=== PATIENT | male | born 1935 | race Caucasian/White ===

== ENCOUNTER 2016-12-03 21:34 | Emergency (ER) | payer MEDICARE ==
[2016-12-03] MEDS ORDERED: GLUCAGON,HUMAN RECOMBINANT 1 MG/ML KIT ONE (22:37)
--- NOTE | 2016-12-03 23:24 | ER PHYSICIAN DOCUMENTATION ---
Physician Documentation [facility] Name:Justo Hopkins Age:80 yrs Sex:Male :1935 Arrival Date:12/03/2016 Time:21:34 Bed4 Private MD:Tu Loaiza ED, Scott Disposition: 12/03/16 22:52 Transfer ordered to [facility]. Diagnosis is Esophageal Stricture. - Reason for transfer: Specialty. - Accepting physician is Dr. Vargas, ER, to consult GI. - Condition is Good. - Problem is new. - Symptoms are unchanged. COBRA Form completed? Transfer - Mode of Transportation Private Vehicle HPI: 12/03 22:47 This 80 yrs old Male presents to ER via Walk In with complaints of Foreign sc Body In Throat. 22:47 eating steak and asparagus. Onset: The symptom(s)/episode began/occurred just prior to sc arrival. Severity of symptoms: At their worst the symptoms were mild. The patient has experienced similar episodes in the past, a few times. known GERD, sxs of food sticking for a few months. Historical: - Allergies: Atenolol; - Tetanus: < 10 years. - Ebola Screening: : Patient negative for fever greater than or equal to 101.5 degrees Fahrenheit, and additional compatible Ebola Virus Disease symptoms. Patient denies exposure to infectious person. Patient denies travel to an Ebola-affected area in the 21 days before illness onset. No symptoms or risks identified at this time. . - Immunization history: Flu Vaccine < 1 year. - Social history: Smoking status: Patient states was never smoker of tobacco. ROS: 22:48 Constitutional: Negative for fever, chills, and weight loss. sc Eyes: Negative for injury, pain, redness, and discharge. ENT: Negative for injury, pain, and discharge. Neck: Negative for injury, pain, and swelling. Cardiovascular: Negative for chest pain, palpitations, and edema. Respiratory: Negative for shortness of breath, cough, wheezing, and pleuritic chest pain. Back: Negative for injury and pain. MS/Extremity: Negative for injury and deformity. Skin: Negative for injury, rash, and discoloration. 22:48 Neuro: Negative for headache, weakness, numbness, tingling, and seizure. sc 22:48 Constitutional: Negative for body aches. 22:48 Cardiovascular: Negative for chest pain. 22:48 Respiratory: Negative for shortness of breath. 22:48 Abdomen/GI: Positive for food stuck, can't handle secretions. Exam: Head/Face: Normocephalic, atraumatic. Eyes: Pupils equal round and reactive to light, extra-ocular motions intact. Lids and lashes normal. Conjunctiva and sclera are non-icteric and not injected. Cornea within normal limits. Periorbital areas with no swelling, redness, or edema. ENT: Nares patent. No nasal discharge, no septal abnormalities noted. Tympanic membranes are normal and external auditory canals are clear. Oropharynx with no redness, swelling, or masses, exudates, or evidence of obstruction, uvula midline. Mucous membranes moist. Neck: Trachea midline, no thyromegaly or masses palpated, and no cervical lymphadenopathy. Supple, full range of motion without nuchal rigidity, or vertebral point tenderness. No meningismus. Chest/axilla: Normal chest wall appearance and motion. Nontender with no deformity. No lesions are appreciated. Cardiovascular: Regular rate and rhythm with a normal S1 and S2. No gallops, murmurs, or rubs. Normal PMI, no JVD. No pulse deficits. Respiratory: Lungs have equal breath sounds bilaterally, clear to auscultation and percussion. No rales, rhonchi or wheezes noted. No increased work of breathing, no retractions or nasal flaring. Abdomen/GI: Soft, non-tender, with normal bowel sounds. No distension or tympany. No guarding or rebound. No evidence of tenderness throughout. Back: No spinal tenderness. No costovertebral tenderness. Full range of motion. 22:49 Skin: Warm, dry with normal turgor. Normal color with no rashes, no lesions, and no sc evidence of cellulitis. 22:49 Constitutional: The patient appears in obvious distress, mildly distressed, regurgitating saliva and h2o. 22:49 Cardiovascular: Rate: normal, Rhythm: regular. 22:49 Respiratory: the patient does not display signs of respiratory distress, Respirations: normal, Breath sounds: are normal. 22:49 Abdomen/GI: Bowel sounds: normal, Palpation: abdomen is soft and non-tender. Vital Signs: 21:45 BP 151 / 72; Pulse 61; Resp 14; Temp 98.7; Pulse Ox 92% on R/A; Weight 106.59 kg; em1 Height 5 ft. 10 in. (177.80 cm); Pain 1/10; 21:54 BP 151 / 72; Pulse 79; Resp 18; Temp 98(O); Pulse Ox 97% ; Weight 81.65 kg; Height 6 bw2 ft. 0 in. (182.88 cm); Pain 0/10; 23:06 BP 174 / 66; Pulse 78; Resp 18; Temp 98; Pulse Ox 94% ; Pain 0/10; bw2 21:54 Body Mass Index 24.41 (81.65 kg, 182.88 cm) bw2 MDM: 21:44 Patient medically screened. sc 22:50 Differential Diagnosis esophageal food obstruction. Data reviewed: vital signs, nurses sc notes, and as a result, I will *Transfer Patient. Counseling: I had a detailed discussion with the patient and/or guardian regarding: the historical points, exam findings, and any diagnostic results supporting the discharge/admit diagnosis, the need for outpatient follow up, the need to transfer to another facility. Medication response: The patient's symptoms are unchanged despite medication administration. Dispensed Medications: 22:29 Drug: Glucagon 0.5 mg; Route: IVP; Site: left antecubital; bw2 22:45 Follow up: Response: No adverse reaction bw2 Signatures: Andre Boss MD MD ks Mendy Roberson bw2
--- NOTE | 2016-12-03 23:24 | ER NURSING DOCUMENTATION ---
Nurse's Notes [facility] Name:Justo Hopkins Age:80 yrs Sex:Male :1935 Arrival Date:12/03/2016 Time:21:34 Bed4 Private MD:Tu Loaiza Diagnosis:Esophageal Stricture Presentation: 12/03 21:52 Presenting complaint: Patient states: states he has foog stuck in his throat. pt unable bw2 to swallow secretions. pt not in respiratory distress. Transition of care: patient was not received from another setting of care. 21:52 Acuity: HEATHER 3 bw2 21:52 Method Of Arrival: Walk In bw2 Triage Assessment: 21:54 General: Appears in no apparent distress, Behavior is anxious. Pain: Denies pain. bw2 Respiratory: No deficits noted. Breath sounds are clear bilaterally. Historical: - Allergies: Atenolol; - Tetanus: < 10 years. - Ebola Screening: : Patient negative for fever greater than or equal to 101.5 degrees Fahrenheit, and additional compatible Ebola Virus Disease symptoms. Patient denies exposure to infectious person. Patient denies travel to an Ebola-affected area in the 21 days before illness onset. No symptoms or risks identified at this time. . - Immunization history: Flu Vaccine < 1 year. - Social history: Smoking status: Patient states was never smoker of tobacco. Screenin:45 Infectious Disease Risk None. Abuse screen: Denies threats or abuse. Denies injuries bw2 from another. Nutritional screening: No deficits noted. Assessment: 22:44 See Triage Assessment done by same RN. Respiratory: No deficits noted. bw2 Vital Signs: 21:45 BP 151 / 72; Pulse 61; Resp 14; Temp 98.7; Pulse Ox 92% on R/A; Weight 106.59 kg; em1 Height 5 ft. 10 in. (177.80 cm); Pain 1/10; 21:54 BP 151 / 72; Pulse 79; Resp 18; Temp 98(O); Pulse Ox 97% ; Weight 81.65 kg; Height 6 bw2 ft. 0 in. (182.88 cm); Pain 0/10; 23:06 BP 174 / 66; Pulse 78; Resp 18; Temp 98; Pulse Ox 94% ; Pain 0/10; bw2 21:54 Body Mass Index 24.41 (81.65 kg, 182.88 cm) bw2 ED Course: 21:35 Patient arrived in ED. jt 21:36 Tu Loaiza MD is Private Physician. jt 21:43 Andre Boss MD is Attending Physician. me 21:44 Mendy Roberson is Primary Nurse. bw2 21:53 Triage completed. bw2 22:15 Missed attempts: 20 gauge X 1 in right antecubital area. em1 22:45 Valuables Remains with patient. bw2 Administered Medications: 22:29 Drug: Glucagon 0.5 mg; Route: IVP; Site: left antecubital; bw2 22:45 Follow up: Response: No adverse reaction bw2 Outcome: 22:52 ER care complete, transfer ordered by . me 23:06 [facility] Acceptance Time: December 03, 2016 at 23:00 Patient's face sheet was faxed to accepting facility. Face Sheet included patient's name, address, age, gender, contact information and insurance information. Patient will be transported by: Private Vehicle. Report called to: charge nurse Nurse and Physician Charting and Notes were sent to Accepting Facility. All tests and/or procedures with results, if applicable, were sent to accepting facility. 23:06 Condition: good 23:06 Discharge Assessment: Patient awake, alert and oriented x 3. No cognitive and/or functional deficits noted. Patient verbalized understanding of disposition instructions. 23:06 Discharge instructions given to patient, family, Instructed on follow up and referral plans. need for transfer Demonstrated understanding of instructions. 23:24 Patient left the ED. bw2 Signatures: Andre Boss MD MD [facility], [facility] em1 [place] bw2
== END 2016-12-03 23:24 | disposition short-term general hospital (02) ==
LOC: ER 21:34
DX: K22.2 Esophageal obstruction (principal); T18.128A Food in esophagus causing other injury, initial encounter; K21.9 Gastro-esophageal reflux disease without esophagitis
CPT/HCPCS: 96374; 99283; 99285; J1610

== ENCOUNTER 2017-01-11 02:26 | Emergency (ER) | payer MEDICARE ==
[2017-01-11] MEDS ORDERED: PANTOPRAZOLE 40 MG VIAL IV ONE (02:56)
[2017-01-11 02:58] LABS: A/G RATIO 1.5; ALBUMIN 4.1 g/dL (3.5-5.0); ALKALINE PHOSPHATASE 52 U/L (38-126); ALT 43 U/L (21-72); AST 22 U/L (17-59); BILIRUBIN, TOTAL 1.2 mg/dL (0.2-1.3); BLOOD UREA NITROGEN 26 mg/dL (9-20); C-REACTIVE PROTEIN 34.6 mg/L (<10.0); CALCIUM 9.3 mg/dL (8.4-10.2); CHLORIDE 105 mmol/L (98-107); GLUCOSE 136 mg/dL (70-100); LIPASE 70 U/L (23-300); POTASSIUM 4.3 mmol/L (3.5-5.1); SODIUM 137 mmol/L (137-145); TOTAL PROTEIN 6.9 g/dL (6.3-8.2)
[2017-01-11 03:05] LABS: MEAN PLATELET VOLUME 8.7 fL (7.4-10.4); RED CELL DISTRIBUTION WIDTH 13.7 % (11.5-14.5)
[2017-01-11 03:08] LABS: CKMB 0.41 ng/mL (0.00-2.37); TROPONIN I < 0.012 ng/mL (0.00-0.034)
[2017-01-11 03:09] LABS: EOSINOPHILS 2.2 % (0.0-6.0); EOSINOPHILS# 0.3 X 10^3uL (0.0-0.4); HEMATOCRIT 45.7 % (42.0-54.0); LYMPHOCYTES 10.9 % (20.0-40.0); LYMPHOCYTES# 1.3 X 10^3uL (0.8-3.8); MEAN CORPUS. HGB CONCENTRATION 35.1 g/dL (32.0-36.0); MEAN CORPUSCULAR HEMOGLOBIN 30.9 pg (29.0-35.0); MONOCYTES 7.7 % (2.0-10.0); MONOCYTES# 0.9 X 10^3uL (0.2-1.0); NEUTROPHILS 79.2 % (54.0-75.0); NEUTROPHILS# 9.4 X 10^3uL (2.6-6.7); PLATELET COUNT 162 X 10^3uL (130-440); RED BLOOD COUNT 5.19 X 10^6uL (4.20-6.10); WHITE BLOOD COUNT 11.9 X 10^3uL (3.9-10.7)
[2017-01-11] MEDS ORDERED: HOME MEDICATION LIST NEEDED 1 EA EACH MC ONE (03:17)
[2017-01-11] MEDS ORDERED: DEXTROSE 5% NS 1000 ML 1,000 ML IV SCH (04:00)
--- NOTE | 2017-01-11 04:34 | CT REPORT ---
HISTORY: Chest pain with elevated d-dimer. COMPARISON: None. TECHNIQUE: This examination was performed using automated exposure control, adjustment of mA or kV according to patient size, and/or use of iterative reconstruction technique. Axial CT imaging from the thoracic i nlet through the upper abdomen following administration of IV contrast during peak opacification of t he pulmonary arteries, multiplanar reformatted and 3-D images are evaluated. 100cc Isovue 300 and contrast. FINDINGS: A 2.6 cm masslike nodule is noted in the left upper lobe, abutting the major fissure. Multiple additi onal patchy groundglass opacities are also seen in the left upper lobe. There is bibasilar atelectasi s. No pleural effusion or pneumothorax is seen. Cardiac structures and great vessels are unremarkable. There is no pathologic mediastinal or hilar ad enopathy. There is no focal bone lesion. There is atherosclerosis of the thoracic aorta and origin of the great vessels. Coronary artery ather osclerosis is seen. Liver: The liver is normal in size and appearance, Gallbladder: The gallbladder is normal in appearance without evidence of calcified stones or inflamma tory changes. Spleen: The spleen is normal in appearance. Pancreas: No pancreatic abnormality is seen. No masses are noted and no inflammatory changes are seen . Kidneys: The kidneys are normal in size. 2 simple cyst are noted in the left kidney. No renal mass is identified. There is no hydronephrosis. Adrenals: The adrenal glands are unremarkable. Vasculature: There is atherosclerosis of the abdominal aorta and branch vessels. GI Tract: The stomach, small and large bowel are unremarkable in appearance. Retroperitoneal: No significant lymphadenopathy or ascites is identified. Bony Structures: Visualized bony structures are unremarkable in appearance. Bladder: The bladder distends normally. Soft tissues: Bilateral fat-containing inguinal hernias are seen. IMPRESSION: 1. No pulmonary embolism. 2. A 2.6 cm soft tissue masslike nodule in the left upper lobe, abutting the fissure concerning for an underlying primary lung cancer. 3. Multiple additional groundglass opacities in the left upper lobe which may be infectious or infla mmatory in etiology. 4. No acute abnormality on CT abdomen/pelvis. Final Electronic Signature: This report was electronically signed by Yusra Tsang MD on 01/11/2017 4:31 AM. jana /
--- NOTE | 2017-01-11 06:25 | ER PHYSICIAN DOCUMENTATION ---
Physician Documentation [facility] Name:Justo Hopkins Age:81 yrs Sex:Male :1935 Arrival Date:01/11/2017 Time:02:22 BedTrauma-C Private MD: Reilly Man Disposition: 01/11 03:00 Critical Care: not applicable. be Disposition: 01/11/17 05:22 Transfer ordered to [facility]. 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 - Reason for transfer: Higher level of care. - Accepting physician is Dr. Song [facility] Hospitalist. - Condition is Good. - Problem is new. - Symptoms have improved. COBRA Form completed? Yes Transfer - Mode of Transportation Ambulance HPI: 02:27 This 81 yrs old Male presents to ER with complaints of Chest Pain. be 02:27 The patient or guardian reports chest pain that is located primarily in the epigastric be area. Onset: 2 hour(s) ago. The pain does not radiate. There has been no movement of pain. Associated signs and symptoms: Pertinent positives: abdominal pain, nausea, Pertinent negatives: diaphoresis, palpitations, shortness of breath, vomiting. Risk factors for coronary artery disease include:. Historical: - Allergies: No known drug Allergies; - Home Meds: 1. Lisinopril Oral 2. Aspirin Oral 3. Allopurinol Oral 4. Metoprolol Tartrate Oral 5. Lipitor Oral 6. Nexium Oral - PMHx: Hypertension; HIGH CHOLESTEROL; - PSHx: esophagus; - Tetanus: < 10 years. - Ebola Screening: : Patient denies exposure to infectious person. Patient denies travel to an Ebola-affected area in the 21 days before illness onset. . - Immunization history: Flu Vaccine < 1 year. - Social history: Smoking status: Patient states was never smoker of tobacco. Patient/guardian denies using alcohol. ROS: 02:28 Cardiovascular: Positive for chest pain, Negative for edema, orthopnea, palpitations, be paroxysmal nocturnal dyspnea. 02:28 Abdomen/GI: Positive for abdominal pain, nausea, Negative for vomiting, diarrhea. 02:28 All other systems are negative. Exam: 02:29 Abdomen/GI: Soft, tender epigastrum/RUQ with normal bowel sounds. No distension or be tympany. No guarding or rebound. BS normal 02:29 Cardiovascular: Rate: normal, Rhythm: regular. 02:29 Respiratory: the patient does not display signs of respiratory distress, Respirations: normal, Breath sounds: are normal, clear throughout. Vital Signs: 02:59 BP 131 / 65; Pulse 54; Resp 17; Pulse Ox 92% on R/A; Weight 104.33 kg; Height 5 ft. 11 lb in. (180.34 cm); Pain 5/10; 04:32 BP 118 / 55; Pulse 50; Resp 17; Pulse Ox 95% 2 lpm ; lb 05:29 BP 126 / 60; Pulse 46; Resp 18; Pulse Ox 96% ; em3 06:25 BP 110 / 60; Pulse 50; Resp 16; Pain 1/10; lb 02:59 Body Mass Index 32.08 (104.33 kg, 180.34 cm) lb MDM: 02:25 Patient medically screened. be 02:30 Patient took aspirin within the past 24 hours. Patient did not receive fibrinolytic due be to. Data reviewed: vital signs, nurses notes, lab test result(s), EKG, radiologic studies. 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 ECG:. 02:59 Patient took aspirin in the Emergency Department. Data reviewed: and as a result, I be will admit patient, administer IV fluids, NS bolus, prescribe pain medication, Dilaudid, Toradol, protonix and zofran. 03:14 EKG attached lb 01/11 03:04 Order name: COMPREHENSIVE METABOLIC PANEL; Complete Time: 03:14 EDMS 01/11 03:07 Interpretation: Normal Except: hyperglycemia. be 01/11 03:04 Order name: LIPASE; Complete Time: 03:14 EDMS 01/11 03:07 Interpretation: Normal. be 01/11 03:04 Order name: C-REACTIVE PROTEIN; Complete Time: 03:14 EDMS 01/11 03:07 Interpretation: Abnormal. be 01/11 03:06 Order name: DDIMER; Complete Time: 03:14 EDMS 01/11 03:07 Interpretation: Abnormal. be 01/11 03:07 Order name: LACTATE; Complete Time: 03:10 EDMS 01/11 03:08 Interpretation: Normal. be 01/11 03:09 Order name: BNP,NT-PRO; Complete Time: 03:14 EDMS 01/11 03:10 Interpretation: Normal. be 01/11 03:09 Order name: CKMB; Complete Time: 03:14 EDMS 01/11 03:10 Interpretation: Normal. be 01/11 03:09 Order name: TROPONIN I; Complete Time: 03:14 EDMS 01/11 03:10 Interpretation: Normal. 01/11 03:12 Order name: CBC AUTO DIF, MDIF/RMOR IF IND; Complete Time: 03:14 EDMS 01/11 03:14 Interpretation: Leukocytosis with left shift and polycythem. 01/11 04:35 Order name: CAT SCAN; CHEST ANGIO [id number]; Complete Time: 05:23 EDMS 01/11 05:23 Interpretation: Normal Except: LORE mass, c/w primary lung malignancy. be 01/11 08:22 Order name: CAT SCAN; ABD/PEL W [id number] EDMS 01/11 08:22 Order name: CAT SCAN; CHEST ANGIO [id number] EDMS 01/11 09:05 Order name: US ABD LIMITED [id number] EDMS 01/11 11:10 Order name: CHEST; SINGLE VIEW [id number] EDMS 01/11 02:25 Order name: EKG - 12 Lead; Complete Time: 02:38 01/11 02:25 Order name: Oxygen; Complete Time: 02:38 01/11 02:25 Order name: Oxygen Sats; Complete Time: 02:38 01/11 02:25 Order name: Cardiac Monitoring - Continuous; Complete Time: 02:38 EC:30 Rate is 59 beats/min. Rhythm is regular with Right bundle branch block. VT interval is be prolonged at 276 msec. QRS interval is prolonged at 151 msec. QT interval is normal. No Q waves. T waves are Normal. No ST changes noted. Clinical impression: No evidence of ischemia. Interpreted by me. Dispensed Medications: 02:38 Drug: NS 0.9% 500 ml; Route: IV; Rate: bolus; Site: right antecubital; fc 06:23 Follow up: IV Status: Completed infusion; IV Intake: 1000ml lb 02:38 Drug: Zofran 8 mg; Route: IVP; Infused Over: 2 mins; Site: right antecubital; fc 03:01 Follow up: Response: Nausea is decreased lb 02:38 Drug: Toradol 30 mg; Route: IVP; Site: right antecubital; fc 03:01 Follow up: Response: Pain is decreased lb 02:38 Drug: Dilaudid 1 mg; Route: IVP; Site: right antecubital; fc 03:01 Follow up: Response: Pain is decreased lb 02:40 Drug: Protonix 80 mg; Route: IVPB; Site: right antecubital; fc 03:01 Follow up: Response: Pain is decreased lb 03:09 Drug: Aspirin 81 mg, 4 tabs, total of 324 mg - Aspirin 81 mg; Route: PO; lb 06:23 Follow up: Response: No adverse reaction lb Signatures: Reilly Francis MD MD be collins, floyd fc Bollock, Lynda lb
--- NOTE | 2017-01-11 06:25 | ER NURSING DOCUMENTATION ---
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 lb denies shortness of breath or nausea. Transition of care: Home. AIR CAT ACTIVATION no. Notified ED Physician of Dr. Francis notified. 02:55 Method Of Arrival: Walk In lb 06:23 Asprin Given Given in ED Amount given po: 243 mg. lb Triage Assessment: 02:57 General: Appears uncomfortable, Behavior is appropriate for age, pleasant, hard of lb hearing. Pain: Complains of pain in diaphragm and mid-sternal area Pain does not radiate. Pain currently is 5 out of 10 on a pain scale. Neuro: No deficits noted. Cardiovascular: Reports Rhythm is sinus rhythm Chest pain is described as mild, quality is indigestion, is located in epigastric area radiates has moved or radiated since the onset. No movement or migration of chest pain, began 4 hours prior to arrival. Respiratory: Airway is patent Trachea midline Respiratory effort is even, unlabored, Respiratory pattern is regular, Breath sounds are clear bilaterally. Historical: - Allergies: No known drug Allergies; - Home Meds: 1. Lisinopril Oral 2. Aspirin Oral 3. Allopurinol Oral 4. Metoprolol Tartrate Oral 5. Lipitor Oral 6. Nexium Oral - PMHx: Hypertension; HIGH CHOLESTEROL; - PSHx: esophagus; - Tetanus: < 10 years. - Ebola Screening: : Patient denies exposure to infectious person. Patient denies travel to an Ebola-affected area in the 21 days before illness onset. . - Immunization history: Flu Vaccine < 1 year. - Social history: Smoking status: Patient states was never smoker of tobacco. Patient/guardian denies using alcohol. Screenin:00 Infectious Disease Risk None. Abuse screen: Denies threats or abuse. Denies injuries lb from another. Nutritional screening: No deficits noted. Assessment: 03:00 See Triage Assessment done by same RN. Pain: Complains of pain in diaphragm and lb mid-sternal area Pain does not radiate. Pain currently is 5 out of 10 on a pain scale. Pain began 4 hours ago. Neuro: No deficits noted. EENT: No deficits noted. Cardiovascular: Rhythm is sinus rhythm. Vital Signs: 02:59 BP 131 / 65; Pulse 54; Resp 17; Pulse Ox 92% on R/A; Weight 104.33 kg; Height 5 ft. 11 lb in. (180.34 cm); Pain 5/10; 04:32 BP 118 / 55; Pulse 50; Resp 17; Pulse Ox 95% 2 lpm ; lb 05:29 BP 126 / 60; Pulse 46; Resp 18; Pulse Ox 96% ; em3 06:25 BP 110 / 60; Pulse 50; Resp 16; Pain 1/10; lb 02:59 Body Mass Index 32.08 (104.33 kg, 180.34 cm) lb ED Course: 02:17 EKG done. (by ED staff). Reviewed by Reilly Francis MD. em3 02:22 Patient arrived in ED. em3 02:22 Reilly Francis MD is Attending Physician. be 02:31 Ewelina Kirkland is Primary Nurse. lb 02:31 Triage completed. lb 02:45 Port Xray Completed. dnn 03:00 Valuables Remains with patient Patient has correct armband on for positive lb identification. Placed in gown. Bed in low position. Call light in reach. Side rails up X2. property assessment monitor on. Pulse ox on. NIBP on. 03:14 Opal Hall MD is Admitting Physician. be 03:14 EKG attached lb 03:16 Oxygen Oxygen administration via nasal cannula @ 2L/min. lb 04:[address] dnn 04:[address] back from [address]. dnn 09:05 US ABD LIMITED [id number] In Process Unspecified. EDMS Administered Medications: 02:38 Drug: NS 0.9% 500 ml; Route: IV; Rate: bolus; Site: right antecubital; fc 06:23 Follow up: IV Status: Completed infusion; IV Intake: 1000ml lb 02:38 Drug: Zofran 8 mg; Route: IVP; Infused Over: 2 mins; Site: right antecubital; fc 03:01 Follow up: Response: Nausea is decreased lb 02:38 Drug: Toradol 30 mg; Route: IVP; Site: right antecubital; fc 03:01 Follow up: Response: Pain is decreased lb 02:38 Drug: Dilaudid 1 mg; Route: IVP; Site: right antecubital; fc 03:01 Follow up: Response: Pain is decreased lb 02:40 Drug: Protonix 80 mg; Route: IVPB; Site: right antecubital; fc 03:01 Follow up: Response: Pain is decreased lb 03:09 Drug: Aspirin 81 mg, 4 tabs, total of 324 mg - Aspirin 81 mg; Route: PO; lb 06:23 Follow up: Response: No adverse reaction lb Intake: 06:23 IV: 1000ml; Total: 1000ml. lb Outcome: 03:15 Decision to Admit by Provider. be 05:22 ER care complete, transfer ordered by MD. be 06:15 [facility] Time: January 11, 2017 at 05:15 Patient's face sheet was faxed to accepting facility. Face Sheet included patient's name, address, age, gender, contact information and insurance information. Patient will be transported by: [facility] ground. Report called to: Cassy BARRERA Nurse and Physician Charting and Notes were sent to Accepting Facility. All tests and/or procedures with results, if applicable, were sent to accepting facility. 06:15 Condition: stable 06:15 Discharge Assessment: Patient awake, alert and oriented x 3. No cognitive and/or functional deficits noted. Patient verbalized understanding of disposition instructions. 06:24 Instructed on need for transfer lb 06:24 Patient left the ED. lb Signatures: Dispatcher [employer] EDMS Reilly Francis MD MD be Norman, David dnn Meiklejohn, Eric em3 collins, floyd fc Bollock, Lynda lb
[2017-01-11] MEDS ORDERED: ENOXAPARIN SODIUM 40 MG/0.4 ML SYR SUBCUT SCH (09:00)
--- NOTE | 2017-01-11 11:02 | RADIOLOGY REPORT ---
A limited single portable view of the chest is correlated with CT scan of the same date. The heart and vessels are unremarkable. The right lung field is clear. The 2 cm left upper lobe mass identified on CT scanning is not well demonstrated on this examination. It is faintly identified. The left lung field is otherwise clear. No fluid or pneumothorax is seen. IMPRESSION: A 2.6 cm left upper lobe mass better identified on CT scanning. Please see the CT scan report from the same date. MTDD
== END 2017-01-11 06:25 | disposition short-term general hospital (02) ==
LOC: ER 02:26
DX: K80.50 Calculus of bile duct without cholangitis or cholecystitis without obstruction (principal); R07.89 Other chest pain; R91.1 Solitary pulmonary nodule; I45.10 Unspecified right bundle-branch block; R10.13 Epigastric pain; R10.11 Right upper quadrant pain; R11.0 Nausea; R73.9 Hyperglycemia, unspecified; R79.1 Abnormal coagulation profile; I10 Essential (primary) hypertension; Z79.899 Other long term (current) drug therapy; Z79.82 Long term (current) use of aspirin; Z74.3 Need for continuous supervision
CPT/HCPCS: 71010; 71275; 74177; 76705; 80053; 82553; 83605; 83690; 83880; 84484; 85025; 85379; 86140; 93005; 93010; 96361; 96365; 96374; 96375; 99285; A0425; A0427